=== PATIENT | female | born 1955 | race Caucasian/White ===

== ENCOUNTER 2017-01-28 17:39 | Day surgery (SDC) | payer OTHER ==
[2017-01-28 18:01] LABS: URINE BILIRUBIN NEGATIVE (NEG); URINE BLOOD LARGE (NEG); URINE GLUCOSE (UA) NEGATIVE (NEG); URINE KETONE NEGATIVE (NEG); URINE LEUKOCYTE ESTERASE POSITIVE (NEG); URINE NITRITE NEGATIVE (NEG); URINE PROTEIN MODERATE (NEG)
[2017-01-28] MEDS ORDERED: MOBIC7.5 M2 PO (18:09)
[2017-01-28] MEDS ORDERED: PRILOSEC OTC20 M1 PO (18:09)
[2017-01-28 18:12] LABS: URINE APPEARANCE CLEAR; URINE COLOR YELLOW
[2017-01-28 18:14] LABS: URINE EPITHELIAL CELLS 0-5 /[HPF] (0-10)
[2017-01-28 18:25] LABS: ANION GAP 13 mmol/L (0-20); BLOOD UREA NITROGEN 18 mg/dl (6-24); CALCIUM 8.8 mg/dl (8.5-10.5); CARBON DIOXIDE-VENOUS 24 mmol/L (22-32); CHLORIDE 107 mmol/l (96-110); GLUCOSE 173 mg/dL (70-110); SODIUM 140 mmol/L (135-145); eGFR VALUE FOR BLACK >90 mL/Min
[2017-01-28] MEDS ORDERED: MULTI VITAMIN1 EAC2 PO (20:44)
[2017-01-29] MEDS ORDERED: NORCO 5-325 TA1 EACH PO (10:15)
[2017-01-29] MEDS ORDERED: BACTRIM DS TAB1 EAC2 PO (10:18)
[2017-02-20] MEDS ORDERED: ZANTAC150 M1 PO (12:46)
[2017-02-20] MEDS ORDERED: TYLENOL ARTHRI650 M1 PO (12:46)
[2017-02-20] MEDS ORDERED: ALLEGRA ALLERG180 M1 PO (12:46)
[2017-05-04] MEDS ORDERED: MELOXICAM7.5 M1 PO (21:57)
[2017-05-04] MEDS ORDERED: KEFLEX500 M4 PO (22:53)
== END 2017-01-29 10:40 ==
LOC: EDMED 17:39 → EMR2 19:35 → CAR1 20:31 → PACU 22:41 → CAR1 23:05
PROVIDERS: Emergency Medicine
PROC: 0T768DZ Dilation of Right Ureter with Intraluminal Device, Via Natural or Artificial Opening Endoscopic (ICD-10-PCS; principal; 2017-01-28)
PROC: 0TJ98ZZ Inspection of Ureter, Via Natural or Artificial Opening Endoscopic (ICD-10-PCS; 2017-01-28)
DX: N20.1 Calculus of ureter (principal); K21.9 Gastro-esophageal reflux disease without esophagitis; Z79.1 Long term (current) use of non-steroidal anti-inflammatories (NSAID); Z79.899 Other long term (current) drug therapy; Z91.040 Latex allergy status; Z90.49 Acquired absence of other specified parts of digestive tract
CPT/HCPCS: C1769; C2617; G0378; J1170; J1580; J2270; J2405; J7030; Q9967

== ENCOUNTER 2017-02-25 07:39 | Day surgery (SDC) | payer OTHER ==
[~2017-02-25 07:39] MED LIST: ALLEGRA ALLERG180 M1 PO; BACTRIM DS TAB1 EAC2 PO; MOBIC7.5 M2 PO; MULTI VITAMIN1 EAC2 PO; NORCO 5-325 TA1 EACH PO; PRILOSEC OTC20 M1 PO; TYLENOL ARTHRI650 M1 PO; ZANTAC150 M1 PO
[2017-02-26] MEDS ORDERED: PERCOCET 5-3251 EACH PO (03:20)
[2017-05-04] MEDS ORDERED: MELOXICAM7.5 M1 PO (21:57)
[2017-05-04] MEDS ORDERED: KEFLEX500 M4 PO (22:53)
== END 2017-02-26 10:55 ==
LOC: WSU 07:39 → SHSB 07:44 → ORW 10:45 → PACU 12:26 → OBGF 13:45
PROC: 0UT94ZZ Resection of Uterus, Percutaneous Endoscopic Approach (ICD-10-PCS; principal; 2017-02-25)
PROC: 0UTC4ZZ Resection of Cervix, Percutaneous Endoscopic Approach (ICD-10-PCS; 2017-02-25)
PROC: 0UT04ZZ Resection of Right Ovary, Percutaneous Endoscopic Approach (ICD-10-PCS; 2017-02-25)
PROC: 0UT74ZZ Resection of Bilateral Fallopian Tubes, Percutaneous Endoscopic Approach (ICD-10-PCS; 2017-02-25)
PROC: 0JQC0ZZ Repair Pelvic Region Subcutaneous Tissue and Fascia, Open Approach (ICD-10-PCS; 2017-02-25)
DX: N81.2 Incomplete uterovaginal prolapse (principal); N84.0 Polyp of corpus uteri; D25.1 Intramural leiomyoma of uterus; N83.8 Other noninflammatory disorders of ovary, fallopian tube and broad ligament; M17.10 Unilateral primary osteoarthritis, unspecified knee; J30.9 Allergic rhinitis, unspecified; Z88.2 Allergy status to sulfonamides; Z88.8 Allergy status to other drugs, medicaments and biological substances; Z87.442 Personal history of urinary calculi; Z90.49 Acquired absence of other specified parts of digestive tract; Z79.899 Other long term (current) drug therapy
CPT/HCPCS: J0690; J1170; J3010; J7030; J7121